=== PATIENT | female | born 1955 | race Caucasian/White ===

== ENCOUNTER → 2024-01-19 16:40 | Outpatient (REF) | payer OTHER, SELFPAY | LOC: PAVMRI 16:40 | PROVIDERS: ATTENDING PHYSICIAN Pain Medicine Interventional Pain Medicine; FAMILY PHYSICIAN Internal Medicine | DX: M54.16 Radiculopathy, lumbar region (principal) | CPT/HCPCS: 72148 ==

== ENCOUNTER → 2024-06-24 08:53 | Outpatient (REF) | payer OTHER, SELFPAY | LOC: RAD 08:53 | PROVIDERS: ATTENDING PHYSICIAN Physician Assistant Surgical; FAMILY PHYSICIAN Internal Medicine | DX: G89.4 Chronic pain syndrome (principal); M96.1 Postlaminectomy syndrome, not elsewhere classified | CPT/HCPCS: 72072 ==

== ENCOUNTER → 2025-01-20 13:23 | Outpatient (REF) | payer OTHER, SELFPAY | LOC: PAVMRI 13:23 | PROVIDERS: ATTENDING PHYSICIAN Pain Medicine Interventional Pain Medicine; FAMILY PHYSICIAN Internal Medicine | DX: M54.16 Radiculopathy, lumbar region (principal) | CPT/HCPCS: 72148 ==

== ENCOUNTER → 2025-01-26 11:23 | Outpatient (REF) | payer OTHER, SELFPAY | LOC: HWCARD 11:23 | PROVIDERS: ATTENDING PHYSICIAN Pain Medicine Interventional Pain Medicine; FAMILY PHYSICIAN Internal Medicine | DX: Z01.818 Encounter for other preprocedural examination (principal) | CPT/HCPCS: 93005 ==

== ENCOUNTER → 2025-06-20 12:41 | Outpatient (REF) | payer OTHER, SELFPAY | LOC: WOUND 12:41 | PROVIDERS: ATTENDING PHYSICIAN Surgery; FAMILY PHYSICIAN Internal Medicine | DX: L97.222 Non-pressure chronic ulcer of left calf with fat layer exposed (principal); I87.2 Venous insufficiency (chronic) (peripheral); Z72.0 Tobacco use | CPT/HCPCS: 11042; 99204; 99406 ==

== ENCOUNTER → 2025-06-30 13:51 | Outpatient (REF) | payer OTHER, SELFPAY | LOC: WOUND 13:51 | PROVIDERS: ATTENDING PHYSICIAN Surgery; FAMILY PHYSICIAN Internal Medicine | DX: L97.222 Non-pressure chronic ulcer of left calf with fat layer exposed (principal); I87.2 Venous insufficiency (chronic) (peripheral); Z72.0 Tobacco use | CPT/HCPCS: 11042 ==

== ENCOUNTER → 2025-08-26 09:25 | Outpatient (REF) | payer OTHER, SELFPAY | LOC: WOUND 09:25 | PROVIDERS: ATTENDING PHYSICIAN Surgery; FAMILY PHYSICIAN Internal Medicine | DX: L97.222 Non-pressure chronic ulcer of left calf with fat layer exposed (principal); I87.2 Venous insufficiency (chronic) (peripheral); Z72.0 Tobacco use | CPT/HCPCS: 97597 ==

== ENCOUNTER 2025-09-02 10:22 | Outpatient (REF) | payer OTHER, SELFPAY | END 2025-09-02 23:59 | disposition home or self-care (01) | LOC: WOUND 10:22 | PROVIDERS: ATTENDING PHYSICIAN Surgery; FAMILY PHYSICIAN Internal Medicine | DX: L97.222 Non-pressure chronic ulcer of left calf with fat layer exposed (principal); I87.2 Venous insufficiency (chronic) (peripheral); Z72.0 Tobacco use | CPT/HCPCS: 99212 ==